=== PATIENT | female | born 1940 | race Hispanic/Latino ===

== ENCOUNTER → 2019-02-10 | Outpatient (CLI) | payer OTHER | END | disposition home or self-care (01) | LOC: RAH 13:11 | PROVIDERS: ATTEND Internal Medicine | DX: S33.140A Subluxation of L4/L5 lumbar vertebra, initial encounter (principal); M41.83 Other forms of scoliosis, cervicothoracic region; M41.85 Other forms of scoliosis, thoracolumbar region; X58.XXXA Exposure to other specified factors, initial encounter; Y93.89 Activity, other specified; Y92.89 Other specified places as the place of occurrence of the external cause; Y99.8 Other external cause status | CPT/HCPCS: 72082; 72100 ==

== ENCOUNTER → 2019-07-25 | Outpatient (CLI) | payer OTHER | END | disposition home or self-care (01) | LOC: OIH 09:27 | PROVIDERS: ATTEND Internal Medicine | DX: I10 Essential (primary) hypertension (principal) | CPT/HCPCS: 71045 ==

== ENCOUNTER → 2020-01-06 | Outpatient (CLI) | payer OTHER | END | disposition home or self-care (01) | LOC: OIH 16:11 | PROVIDERS: ATTEND Internal Medicine | DX: M48.04 Spinal stenosis, thoracic region (principal); M54.14 Radiculopathy, thoracic region; M25.78 Osteophyte, vertebrae; I51.7 Cardiomegaly | CPT/HCPCS: 72070 ==

== ENCOUNTER → 2020-01-30 | Outpatient (CLI) | payer OTHER | END | disposition home or self-care (01) | LOC: OIH 12:35 | PROVIDERS: ATTEND Internal Medicine | DX: K59.04 Chronic idiopathic constipation (principal); R10.12 Left upper quadrant pain; M47.814 Spondylosis without myelopathy or radiculopathy, thoracic region; M40.294 Other kyphosis, thoracic region | CPT/HCPCS: 71046 ==

== ENCOUNTER 2020-05-08 19:01 | Observation (INO) | payer OTHER ==
[~2020-05-08 19:01] MED LIST: ASPI-1197 PO; DYAZIDE GT; LEVO112T7 PO; LOSA25TA41 PO; METO100T14 PO; PANT40GR PO
[2020-05-08 21:02] LABS: BASOPHILS % (AUTO) 0.3 % (0.0-5.0); EOSINOPHILS % (AUTO) 0.4 % (0.0-8.0); HEMATOCRIT 44.4 % (36-48); LYMPHOCYTES % (AUTO) 6.3 % (21.0-51.0); MEAN CORPUSCULAR HEMOGLOBIN 30.4 pg (27.0-33.0); MEAN CORPUSCULAR VOLUME 89.5 fL (79-99); MONOCYTES % (AUTO) 8.6 % (3.0-13.0); NEUTROPHILS % (AUTO) 83.5 % (40.0-77.0); PLATELET COUNT (AUTO) 322 K/uL (130-400); RED BLOOD CELL COUNT(AUTO) 4.96 MIL/uL (4.00-5.50); RED CELL DISTRIBUTION WIDTH 12.8 % (11.0-15.5); WHITE BLOOD COUNT (AUTO) 20.8 K/uL (4.8-10.8)
[2020-05-08 21:14] LABS: CARBON DIOXIDE 26 mmol/L (21-32); CHLORIDE 97 mmol/L (101-111); GLOMERULAR FILTR. RATE CALC 57 mL/min (>60); GLUCOSE,RANDOM 96 mg/dL (70-105); POTASSIUM 4.1 mmol/L (3.5-5.1); SODIUM SERUM 133 mmol/L (136-145); UREA NITROGEN, BLOOD 9 mg/dL (7-18)
[2020-05-08 21:18] LABS: INR 1.18 (0.85-1.15); PARTIAL THROMBOPLASTIN TIME 29.4 SEC (26.3-35.5); PROTHROMBIN TIME 12.7 SEC (9.6-11.6)
[2020-05-08] MEDS ORDERED: ZOSYN 3.375GM+NS 50ML 50 ML IV ONE (21:23)
[2020-05-08 21:25] LABS: ALANINE AMINOTRANSFERASE 29 U/L (12-78); ALBUMIN 2.4 g/dL (3.5-5.0); ASPARTATE AMINOTRANSFERASE 50 U/L (10-37); BILIRUBIN,TOTAL 0.5 mg/dL (0.2-1.0); CREATINE KINASE, TOTAL 56 U/L (21-232); MYOGLOBIN 112 ng/mL (10-92); TOTAL PROTEIN, SERUM 7.2 g/dL (6.0-8.3); TROPONIN I < 0.04 ng/mL (0.00-0.06)
[2020-05-08 21:56] LABS: APPEARANCE,URINE Clear (CLEAR); BILIRUBIN,URINE Negative (NEGATIVE); COLOR,URINE Yellow (YELLOW); GLUCOSE, URINE (UA) Negative (NEGATIVE); KETONES,URINE Negative (NEGATIVE); LEUKOCYTE ESTERASE ,URINE Negative (NEGATIVE); NITRATE,URINE Negative (NEGATIVE); OCCULT BLOOD,URINE Negative (NEGATIVE); PH,URINE 6.5 (5.0-8.0); PROTEIN,URINE Negative (NEGATIVE)
[2020-05-09] MEDS ORDERED: 1/2 NORMAL SALINE 1,000 ML IV ONE (00:15)
[2020-05-09] MEDS ORDERED: 1/2 NORMAL SALINE 1,000 ML IV SCH (05:00)
[2020-05-09 05:07] LABS: BASOPHILS % (AUTO) 0.4 % (0.0-5.0); EOSINOPHILS % (AUTO) 1.2 % (0.0-8.0); HEMATOCRIT 41.4 % (36-48); LYMPHOCYTES % (AUTO) 11.6 % (21.0-51.0); MEAN CORPUSCULAR HEMOGLOBIN 30.3 pg (27.0-33.0); MEAN CORPUSCULAR HGB CONC 33.1 g/dL (32.0-36.0); MEAN CORPUSCULAR VOLUME 91.6 fL (79-99); MONOCYTES % (AUTO) 7.3 % (3.0-13.0); NEUTROPHILS % (AUTO) 78.9 % (40.0-77.0); PLATELET COUNT (AUTO) 310 K/uL (130-400); RED BLOOD CELL COUNT(AUTO) 4.52 MIL/uL (4.00-5.50)
[2020-05-09 05:15] LABS: CREATININE 0.9 mg/dL (0.5-1.5); POTASSIUM 3.9 mmol/L (3.5-5.1)
[2020-05-09] MEDS ORDERED: HYDROMORPHONE HCL 2 MG/ML VIAL IVP PRN (05:15)
[2020-05-09] MEDS ORDERED: ACETAMINOPHEN 325 MG TAB PO PRN (05:15)
[2020-05-09] MEDS ORDERED: ONDANSETRON HCL 4 MG/2 ML VIAL IVP PRN (05:15)
[2020-05-09 05:20] LABS: ALBUMIN 2.1 g/dL (3.5-5.0); BILIRUBIN,TOTAL 0.5 mg/dL (0.2-1.0); TOTAL PROTEIN, SERUM 6.7 g/dL (6.0-8.3)
[2020-05-09] MEDS: ZOSYN 3.375GM+NS 50ML 50 ML IV SCH ×2 (06:00→15:10)
[2020-05-09] MEDS ORDERED: ZOSYN 3.375GM+NS 50ML 50 ML IV ONE (07:26)
[2020-05-09 10:03] VITALS: BP 124/64
--- NOTE | 2020-05-09 13:00 | NUR ---
MET W PATIENT FOR DC PLANNING, READ PATIENT NOTES FROM LAST ADMIT, 'LIVES WITH SON MONICA IS INDEPENDENT, USES NO MOBILITY AIDES, QUISPE NOT HAVE A SHOWER CHAIR/BENCH; SEES HER PCP OFTEN, AND DRIVES HERSELF TO APPOINTMENT DAUGHTER SIMONA WILL PROVIDE TRANSPORT HOME' PATIENT STATES ALL IS SAME, BUT STATES HAS APPOINTMENT WITH DR. 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 DISCUSSED PRB DC WITH PRIMARY NURSE ISAC CAREY SHE WILL CALL MD. TEXT TO MD TO SAY PT WANTT TO GO HOEM OT FOLLOW UP HER CARE.. 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
[2020-05-09 13:28] VITALS: BP_SYST 118; BP_SYST 18; BP_DIAS 58
[2020-05-09 16:38] VITALS: BP 138/80
--- NOTE | 2020-05-09 17:30 | NUR ---
SPOKE WITH DR ANTONIO PER PT MAY BE DISCHARGED HOME AFTER 1 GRAM INVANZ IV ONCE IS ADMINISTERED. PT TO F/U TOMORROW.
[2020-05-09] MEDS ORDERED: MEROPENEM 1 GM VIAL IV SCH (17:45)
--- NOTE | 2020-05-09 18:05 | NUR ---
MET W PATIENT FOR DC PLANNING, READ PATIENT NOTES FROM LAST ADMIT, 'LIVES WITH SON MONICA IS INDEPENDENT, USES NO MOBILITY AIDES, QUISPE NOT HAVE A SHOWER CHAIR/BENCH; SEES HER PCP OFTEN, AND DRIVES HERSELF TO APPOINTMENT DAUGHTER SIMONA WILL PROVIDE TRANSPORT HOME' PATIENT STATES ALL IS SAME, BUT STATES HAS APPOINTMENT WITH DR. 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 DISCUSSED PRB DC WITH PRIMARY NURSE ISAC CAREY SHE WILL CALL MD. TEXT TO MD TO SAY PT WANTT TO GO HOEM OT FOLLOW UP HER CARE.. 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
== END 2020-05-09 20:20 | disposition home or self-care (01) ==
LOC: EDH 19:01 → EDHIP 23:36 → 3DH 05-09 08:31
PROVIDERS: ADMIT Internal Medicine; ATTEND Internal Medicine
DX: A41.9 Sepsis, unspecified organism (principal); Z20.828 Contact with and (suspected) exposure to other viral communicable diseases; R50.9 Fever, unspecified; Z85.07 Personal history of malignant neoplasm of pancreas; Z90.710 Acquired absence of both cervix and uterus
CPT/HCPCS: 36415 ×2; 71045; 80053 ×2; 81003; 82550; 83605; 83874; 84145; 84484; 85025 ×2; 85610; 85730; 86850; 86900; 86901; 87040 ×2; 87088; 87426; 93005; 96365; 96366; 96375; 99285; G0378 ×2; J2185; J2543 ×3; U0003

== ENCOUNTER 2020-05-21 09:47 | Day surgery (SDC) | payer OTHER ==
[2020-05-18 13:52] LABS: BASOPHILS % (AUTO) 0.8 % (0.0-5.0); EOSINOPHILS % (AUTO) 4.5 % (0.0-8.0); HEMATOCRIT 44.8 % (36-48); LYMPHOCYTES % (AUTO) 17.4 % (21.0-51.0); MEAN CORPUSCULAR HGB CONC 33.7 g/dL (32.0-36.0); MEAN CORPUSCULAR VOLUME 88.9 fL (79-99); MONOCYTES % (AUTO) 9.8 % (3.0-13.0); PLATELET COUNT (AUTO) 258 K/uL (130-400); RED BLOOD CELL COUNT(AUTO) 5.04 MIL/uL (4.00-5.50); RED CELL DISTRIBUTION WIDTH 13.2 % (11.0-15.5); WHITE BLOOD COUNT (AUTO) 13.6 K/uL (4.8-10.8)
[2020-05-18 14:05] LABS: CREATININE 0.9 mg/dL (0.5-1.5); POTASSIUM 4.1 mmol/L (3.5-5.1)
[2020-05-18 14:08] LABS: INR 1.14 (0.85-1.15); PARTIAL THROMBOPLASTIN TIME 27.3 SEC (26.3-35.5); PROTHROMBIN TIME 12.2 SEC (9.6-11.6)
--- NOTE | 2020-05-18 16:04 | NUR ---
RE: ABNORMAL LABS REPORTED ELEVATED WBC 13.[address] JAMES'S OFFICE. SPOKE WITH MANISHA DE LA PAZ. OK TO PROCEED.
[2020-05-21] MEDS ORDERED: SODIUM CHLORIDE 0.9% 1000ML 1,000 ML IV ONE (09:49)
--- NOTE | 2020-05-21 10:40 | NUR ---
TRANSFER PATIENT TRANSFERRED TO [facility] [employer] [facility] FOR PORT-A-CATH PLACEMENT. PATIENT STATES NO COMPLAINTS OF PAIN. IV IN PLACE AT LEFT AC AND PATENT.
[2020-05-21] MEDS ORDERED: LIDOCAINE HCL 1% MDV 50ML VIAL ONE (10:43)
[2020-05-21] MEDS ORDERED: LIDOCAINE 1%-EPI 1:100,000 20 ML VIAL IJ ONE (10:46)
[2020-05-21] MEDS ORDERED: FENTANYL CITRATE PF 50 MCG/1 ML 2ML VIAL ONE (11:09)
[2020-05-21] MEDS ORDERED: MIDAZOLAM HCL 1 MG/ML 2ML VIAL ONE (11:09)
[2020-05-21] MEDS ORDERED: OCTYL 2-CYANOACRYLATE 1 EACH TP ONE (11:18)
--- NOTE | 2020-05-21 11:55 | NUR ---
DRESSING PATIENT ARRIVED FROM PLAN COORDINATOR/IR IN STABLE CONDITION. VITAL SIGNS ASSESSED. RIGHT UPPER CHEST DRESSING ASSESSED-CLEAN, DRY, AND INTACT. NO HEMATOMA OR BLEEDING NOTED.
[2020-05-21 12:15] VITALS: BP 105/61
--- NOTE | 2020-05-21 12:15 | NUR ---
VITAL SIGNS ASSESSED. RIGHT UPPER CHEST DRESSING ASSESSED-CLEAN, DRY, AND INTACT. NO HEMATOMA OR BLEEDING NOTED. PATIENT STATES NO COMPLAINTS OF PAIN.
[2020-05-21 12:30] VITALS: BP 119/68
--- NOTE | 2020-05-21 12:30 | NUR ---
DRESSING VITAL SIGNS ASSESSED. RIGHT UPPER CHEST DRESSING ASSESSED-CLEAN, DRY, AND INTACT. NO HEMATOMA OR BLEEDING NOTED. PATIENT STATES NO COMPLAINTS OF PAIN.
[2020-05-21 12:45] VITALS: BP 130/77
--- NOTE | 2020-05-21 12:45 | NUR ---
DRESSING VITAL SIGNS ASSESSED. RIGHT UPPER CHEST DRESSING ASSESSED-CLEAN, DRY, AND INTACT. NO HEMATOMA OR BLEEDING NOTED. PATIENT STATES NO COMPLAINTS OF PAIN.
[2020-05-21] MEDS ORDERED: ONDA4TAB4 PO (13:00)
[2020-05-21] MEDS ORDERED: HYDR-4060 PO (13:00)
--- NOTE | 2020-05-21 13:05 | NUR ---
DISCHARGE VERBAL AND WRITTEN ORDERS PROVIDED TO PATIENT AND DAUGHTER. PATIENT STATES NO COMPLAINTS OF PAIN. DRESSING TO RIGHT UPPER CHEST ASSESSED-NO BLEEDING, HEMATOMA, OR DRAINAGE NOTED. IV REMOVED-CATHETER INTACT AND DRESSING APPLIED. PATIENT DISCHARGED VIA WHEELCHAIR ACCOMPANIED BY DAUGHTER TO PRIVATE VEHICLE.
== END 2020-05-21 13:05 | disposition home or self-care (01) ==
LOC: DAH 09:47
PROVIDERS: ATTEND Internal Medicine
DX: Z51.11 Encounter for antineoplastic chemotherapy (principal); C25.2 Malignant neoplasm of tail of pancreas; C78.7 Secondary malignant neoplasm of liver and intrahepatic bile duct; C78.02 Secondary malignant neoplasm of left lung; C78.01 Secondary malignant neoplasm of right lung; C78.80 Secondary malignant neoplasm of unspecified digestive organ; C79.51 Secondary malignant neoplasm of bone; I10 Essential (primary) hypertension; E11.9 Type 2 diabetes mellitus without complications; M19.90 Unspecified osteoarthritis, unspecified site; E03.9 Hypothyroidism, unspecified; E66.9 Obesity, unspecified; Z90.710 Acquired absence of both cervix and uterus; Z98.890 Other specified postprocedural states; Z80.0 Family history of malignant neoplasm of digestive organs; Z87.440 Personal history of urinary (tract) infections; Z90.722 Acquired absence of ovaries, bilateral; Z68.33 Body mass index [BMI] 33.0-33.9, adult; Z79.01 Long term (current) use of anticoagulants
CPT/HCPCS: 36415; 36561; 77001; 80048; 85025; 85610; 85730; 93005; A4215; A4221; A4222; A4223 ×2; A4663; C1788; C1894; J1644 ×2; J2250; J3010; J3490 ×2; J7030; 99156; 99157

== ENCOUNTER 2020-05-22 12:13 | Observation (INO) | payer OTHER ==
[~2020-05-22] VITALS: Ht 154.9 cm; Wt 75.7 kg
[~2020-05-22 12:13] MED LIST changes: -ASPI-1197 PO; -DYAZIDE GT; +HYDR-4060 PO; +ONDA4TAB4 PO; -PANT40GR PO
[2020-05-22 12:39] LABS: BASOPHILS % (AUTO) 0.5 % (0.0-5.0); EOSINOPHILS % (AUTO) 0.4 % (0.0-8.0); HEMATOCRIT 46.6 % (36-48); LYMPHOCYTES % (AUTO) 11.7 % (21.0-51.0); MEAN CORPUSCULAR HEMOGLOBIN 29.6 pg (27.0-33.0); MEAN CORPUSCULAR VOLUME 89.6 fL (79-99); MONOCYTES % (AUTO) 7.9 % (3.0-13.0); PLATELET COUNT (AUTO) 232 K/uL (130-400); RED CELL DISTRIBUTION WIDTH 13.3 % (11.0-15.5)
[2020-05-22 12:55] LABS: ALBUMIN 2.7 g/dL (3.5-5.0); CREATININE 1.2 mg/dL (0.5-1.5); POTASSIUM 4.4 mmol/L (3.5-5.1); TOTAL PROTEIN, SERUM 7.7 g/dL (6.0-8.3)
[2020-05-22 12:56] LABS: INR 1.22 (0.85-1.15); PROTHROMBIN TIME 13.1 SEC (9.6-11.6)
[2020-05-22 13:18] LABS: AMYLASE 37 U/L (25-115); LIPASE 84 U/L (114-286)
[2020-05-22 13:26] LABS: B-TYPE NATRIURETIC PEPTIDE 530 pg/mL (0-100)
[2020-05-22] MEDS ORDERED: BISACODYL 10 MG SUPP.RECT RC ONE (13:27)
[2020-05-22] MEDS ORDERED: ONDANSETRON HCL 4 MG/2 ML VIAL ONE (13:27)
[2020-05-22] MEDS ORDERED: KETOROLAC TROMETHAMINE 30MG/ML ONE (13:27)
[2020-05-22] MEDS ORDERED: MORPHINE SULFATE 4 MG/1ML SYG ONE (13:28)
[2020-05-22] MEDS ORDERED: ZOSYN 3.375GM+NS 50ML 50 ML IV ONE (18:35)
[2020-05-22] MEDS ORDERED: HYDROMORPHONE HCL 0.5 MG/0.5 ML ML IVP PRN (19:45)
[2020-05-22] MEDS ORDERED: HYDROMORPHONE HCL 0.5 MG/0.5 ML ML ONE (20:59)
[2020-05-22 21:35] LABS: TROPONIN I 1.29 ng/mL (0.00-0.06)
[2020-05-22] MEDS ORDERED: ASPIRIN 81MG TAB.CHEW ONE (22:35)
[2020-05-22] MEDS ORDERED: ENOXAPARIN SODIUM 40 MG/0.4 ML SYRINGE SQ ONE (22:36)
[2020-05-23] MEDS: DEXTROSE 5 %-0.45 % NACL 1,000 ML IV SCH (00:20)
[2020-05-23] MEDS: METRONIDAZOLE 250MG/50ML 50 ML IV SCH (00:20)
[2020-05-23] MEDS ORDERED: ZOSYN 3.375GM+NS 50ML 50 ML IV ONE ×2 (02:59→10:07)
[2020-05-23] MEDS ORDERED: HYDROMORPHONE HCL 0.5 MG/0.5 ML ML ONE ×2 (04:25→19:58)
[2020-05-23 04:32] LABS: BASOPHILS % (AUTO) 0.3 % (0.0-5.0); HEMATOCRIT 43.9 % (36-48); LYMPHOCYTES % (AUTO) 8.3 % (21.0-51.0); MEAN CORPUSCULAR HEMOGLOBIN 29.4 pg (27.0-33.0); MEAN CORPUSCULAR HGB CONC 33.5 g/dL (32.0-36.0); MEAN CORPUSCULAR VOLUME 87.8 fL (79-99); MONOCYTES % (AUTO) 8.8 % (3.0-13.0); NEUTROPHILS % (AUTO) 82.2 % (40.0-77.0); PLATELET COUNT (AUTO) 201 K/uL (130-400); RED CELL DISTRIBUTION WIDTH 13.4 % (11.0-15.5)
[2020-05-23 04:45] LABS: CREATININE 1.3 mg/dL (0.5-1.5); POTASSIUM 4.6 mmol/L (3.5-5.1)
[2020-05-23 05:02] LABS: ALBUMIN 2.3 g/dL (3.5-5.0)
[2020-05-23 05:51] LABS: TROPONIN I 0.78 ng/mL (0.00-0.06)
[2020-05-23] MEDS ORDERED: ONDANSETRON HCL 4 MG/2 ML VIAL ONE ×2 (08:32→17:46)
[2020-05-23] MEDS ORDERED: FUROSEMIDE 10 MG/ML 2ML VIAL IV SCH (15:15)
[2020-05-23] MEDS ORDERED: FUROSEMIDE 10 MG/ML 2ML VIAL ONE (15:27)
[2020-05-24 00:04] VITALS: BP 135/65
[2020-05-24] MEDS: METOPROLOL TARTRATE 25 MG TAB PO SCH ×2 (00:20→08:52)
[2020-05-24] MEDS: ZOSYN 3.375GM+NS 50ML 50 ML IV SCH ×3 (00:20→18:00)
[2020-05-24] MEDS: ASPIRIN 81MG TAB.CHEW PO SCH ×2 (00:20→08:53)
[2020-05-24] MEDS: METRONIDAZOLE 250MG/50ML 50 ML IV SCH ×3 (04:00→16:00)
[2020-05-24 04:20] VITALS: BP 127/72
[2020-05-24] MEDS ORDERED: METRONIDAZOLE 500MG/100ML BAG 100 ML ONE (04:59)
[2020-05-24] MEDS: DEXTROSE 5 %-0.45 % NACL 1,000 ML IV SCH ×3 (05:01→19:45)
[2020-05-24] MEDS: ONDANSETRON HCL 4 MG/2 ML VIAL IVP PRN ×2 (05:17→10:24)
--- NOTE | 2020-05-24 08:00 | NUR ---
PT AAO X 3 REVIEW PLAN OF CARE, WITH PT. AT PRESENT DENIES ANY PAIN. STATED THAT SHE WILL WAIT FOR HER DAUGHTER TO COME IN TO HELP HER REVIEW CALL LIGHT IN REACH. ABD SOFT TO TOUCH ACTIVE BOWEL SOUND.
[2020-05-24 09:51] VITALS: BP 122/70
--- NOTE | 2020-05-24 10:00 | NUR ---
DAUGHTER , ALESSANDRO HERE AND UPDATE OF PT .CARE , AND PENDING DR. JAMES CONSULATION . AWARE OF DRMounika VISIT PENDING . CALL LIGHT IN REACH.
[2020-05-24] MEDS ORDERED: COMPOUND IV MISC 1 EACH IVSOLN MISC PRN (12:15)
[2020-05-24 12:43] VITALS: BP 137/83
[2020-05-24 16:36] VITALS: BP 128/72
--- NOTE | 2020-05-24 18:00 | NUR ---
DR. JAMES HERE AND REVIEW PLAN OF CARE WITH PT .AND DAUGHTER .AGREE FOR CARE, AND OKAY TO DISCHARGE WITH FOLLOWUP CARE
--- NOTE | 2020-05-24 18:00 | NUR ---
SPOKE WITH PATIENT AT BEDSIDE, DAUGHTER VERY UPSET STATES DR. ANTONIO ORDERED HOSPICE AND SHE DOES NOT WANT THAT YET FOR HER MOM AND HE CANT TELL THEM WHAT HOSPICE OT PICK. PT STATES A HOSPICE IS CALLING THEM ALREADY AND HOW DID THEY GET HER NUMBER? LIST OF HOSPICES GIVEN . ADIVSD DTR THEY CAN PICK THEIR OWN, THEY CAN USE THE HOSPICE DR. ANTONIO HAS RECOMMENDED OR THEY CAN PICK ANOTHER ONE, AND THEY DO NOT NEED AN ORDER FROM [facility]. WAITING ON HONORIO CASTAÑEDA DR, SARHIL MADE ROUNDS AND REINFORCED THAT PATIENT CAN DO WHAT SHE LIKES, PALLIATIVE CHEMO OR HOSPICE- NOT A CANDIDATE FOR RADIATION OR SURGERY. PATIENT VERBALIZED UNDERSTANDING. DAUGHTER ISAC WE ARE GOING HOME TO FOLLOW UP WITH DR OLMEDO IN THE CLINIC. Addendum: 05/25/20 at 1720 by NISHA CHILDS RN Amended: Links added.
--- NOTE | 2020-05-24 20:20 | NUR ---
DIS CHARGE SUMMARY WAS RE VIEW . WITH AND DAUGHTER , MEDICATION FOR PAIN . AND ANTIBOTICS , AND FOLLOWUP APPT .WITH PT. . SL TO HER RAC AND LAC ,WAS DC ,WITH NO HEMATOMA OR REDNESS TO SITE, A DRSG APPLICATION ON ..
== END 2020-05-24 20:30 | disposition home or self-care (01) ==
LOC: EDH 12:13 → EDHIP 18:40 → 4BH 05-24 00:03
PROVIDERS: ADMIT Internal Medicine; ATTEND Internal Medicine
DX: K57.32 Diverticulitis of large intestine without perforation or abscess without bleeding (principal); C25.9 Malignant neoplasm of pancreas, unspecified; C78.00 Secondary malignant neoplasm of unspecified lung; C78.7 Secondary malignant neoplasm of liver and intrahepatic bile duct; C79.51 Secondary malignant neoplasm of bone; I13.0 Hypertensive heart and chronic kidney disease with heart failure and stage 1 through stage 4 chronic kidney disease, or unspecified chronic kidney disease; I50.30 Unspecified diastolic (congestive) heart failure; N18.9 Chronic kidney disease, unspecified; N17.9 Acute kidney failure, unspecified; K59.00 Constipation, unspecified; M19.90 Unspecified osteoarthritis, unspecified site; D72.829 Elevated white blood cell count, unspecified; E03.9 Hypothyroidism, unspecified; R00.0 Tachycardia, unspecified; Z90.710 Acquired absence of both cervix and uterus; Z79.899 Other long term (current) drug therapy
CPT/HCPCS: 36415 ×2; 71045; 74176; 80053 ×2; 82150; 82550 ×3; 83605; 83690; 83874 ×2; 83880 ×2; 84484 ×3; 85025 ×2; 85610; 85730; 87040 ×2; 93005 ×2; 93306; 93356; 96365; 96367; 96375; 96376; 99285; G0378 ×49; J1170 ×4; J1650; J1885; J1940; J2270; J2405 ×5; J2543 ×4; J3490 ×5; J7042